=== PATIENT | male | born 1965 | race Two or more races ===

== ENCOUNTER → 2023-05-20 | Outpatient (CLI) | payer OTHER | END | disposition home or self-care (01) | LOC: XYW 08:45 → EEVIPCON 09:00 | PROVIDERS: ATTEND Surgery | DX: J32.0 Chronic maxillary sinusitis (principal); H81.319 Aural vertigo, unspecified ear | CPT/HCPCS: 70450 ==

== ENCOUNTER → 2024-11-01 | Outpatient (CLI) | payer OTHER ==
--- NOTE | 2024-11-01 11:58 | DVH ---
Procedure: CT CHEST WITHOUT CONTRAST Reason for study/Clinical History: SCREENING LUNG CANCER Comparison Study: None available at time of dictation. TECHNIQUE: Multidetector CT of the chest was performed from the lung apices to the upper abdomen with out the use of intravenous contract. Axial, coronal and sagittal multiplanar reformats were performed . Radiation Dose Information: CT Dose: CTDI volume is 9.2 mGy. Dose-length product is 400.4 mGy*cm The dose indicators for CT are the volume Computed Tomography (CT) Dose Index (CTDIvol) and the Dose Length Product (DLP), and are measured in units of mGy and mGy-cm, respectively. These indicators are not patient dose, but values generated from the CT scanner acquisition factors. The report includes radiation exposure data for exposures received during this examination. FINDINGS: Lower neck: Unremarkable. Lungs: No focal consolidation. No suspicious pulmonary nodule. Heart/Vascular Structures: Normal heart size. No pericardial effusion. Lymph Nodes: No adenopathy Pleura: No pleural effusion or significant pneumothorax. Musculoskeletal: No acute osseous abnormality. Soft tissues: Normal. Upper abdomen: Incidental note of diverticulosis with moderate inflammatory changes in the splenic fl exure. Cholelithiasis. IMPRESSION: No acute intrathoracic abnormality. Incidental note of possible short-segment diverticulitis at the transverse colon at the splenic flexu re. Colonic neoplasm is felt to be less likely but not completely excluded. Clinical correlation adv ised. Colonoscopy or repeat CT abdomen and pelvis could be obtained after treatment to ensure comple te resolution. Lung-RADS Category 1: Continue annual screening with LDCT
== END | disposition home or self-care (01) ==
LOC: XYW 08:13
DX: Z12.2 Encounter for screening for malignant neoplasm of respiratory organs (principal); K80.20 Calculus of gallbladder without cholecystitis without obstruction; K40.90 Unilateral inguinal hernia, without obstruction or gangrene, not specified as recurrent; H81.319 Aural vertigo, unspecified ear
CPT/HCPCS: 71250